=== PATIENT | male | born 1960 | race Caucasian/White ===

== ENCOUNTER → 2018-10-02 10:12 | Outpatient (CLI) | payer OTHER | END | disposition home or self-care (01) | LOC: D.CT 10:12 | DX: R10.9 Unspecified abdominal pain (principal) ==

== ENCOUNTER 2020-06-05 08:00 | Outpatient (CLI) | payer OTHER | END 2020-06-05 08:01 | disposition home or self-care (01) | LOC: D.CT 08:00 | PROVIDERS: ATTEND Internal Medicine Gastroenterology | DX: R10.31 Right lower quadrant pain (principal) ==